=== PATIENT | male | born 1990 | race Caucasian/White ===

== ENCOUNTER 2025-06-09 13:24 | Emergency (ER) | payer OTHER, SELFPAY ==
[2025-06-09] MEDS ORDERED: cefTRIAXone (ROCEPHIN) 500 MG VIAL ONE (14:09)
[2025-06-10 02:24] LABS: Chlam.trachomatis by PCR,Urine Not Detected (NotDetected); GC N.gonorrhoeae PCR,UrineVOID Not Detected (NotDetected)
== END 2025-06-09 14:40 | disposition home or self-care (01) ==
LOC: NAV ERS 13:24
DX: Z20.2 Contact with and (suspected) exposure to infections with a predominantly sexual mode of transmission (principal); F17.210 Nicotine dependence, cigarettes, uncomplicated
CPT/HCPCS: 87491; 87591; 99283; J0696